=== PATIENT | male | born 1990 | race Hispanic/Latino ===

== ENCOUNTER 2020-01-15 08:27 | Emergency (ER) | payer OTHER ==
[~2020-01-15] VITALS: Ht 165.1 cm; Wt 83.5 kg
[2020-01-15] MEDS ORDERED: [UNRECOGNIZED DRUG - CODE] TOP (09:20)
[2020-01-15 09:23] VITALS: BP 128/72
== END 2020-01-15 09:27 | disposition home or self-care (01) ==
LOC: M ED 08:27
DX: B07.0 Plantar wart (principal)